=== PATIENT | female | born 1990 | race Caucasian/White ===

== ENCOUNTER 2016-10-07 19:23 | Emergency (ER) | payer MEDICARE, MEDICAID ==
[2016-10-07 20:31] VITALS: BP 107/64
--- NOTE | 2016-10-07 20:47 | UC ---
Skin Complaint HPI - HPI Summary HPI Summary: patient was treated with triamcinolone cream for what was thought to be contact dermatitis. the rash is spreading. it is small fluid filled vesicals on bilateral hands, somewhat itchy - History of Current Complaint Chief Complaint: UCRash Time Seen by Provider: 10/07/16 20:09 Stated Complaint: skin complaint Hx Obtained From: Patient Hx Last Menstrual Period: on depo - doesn't get ?: No Onset/Duration: Sudden Onset, Lasting Days Skin Exposure Onset/Duration: Days Ago Timing: Constant Onset Severity: Mild Current Severity: Moderate Location: Hand (Right), Hand (Left) Character: Swelling, Pruritus, Raised Aggravating: Nothing - Allergy/Home Medications Allergies/Adverse Reactions: Allergies Allergy/AdvReac Type Severity Reaction Status Date / Time No Known Allergies Allergy Verified 10/07/16 20:11 Home Medications: Home Medications Calcium Carbonate-Vitamin D [Calcium 600 + D 600-400 mg-Unit] 1 tab PO BEDTIME 10/07/16 [History Confirmed 10/07/16] Clindamycin Phosphate-Benzoyl [Clindamycin/Benzoyl Perox 1.2-5 %] 1 gel EX BID 10/07/16 [History Confirmed 10/07/16] Fluticasone NASAL SPRAY 50MCG* [Flonase NASAL SPRAY 50MCG*] 2 spray BOTH NARES BEDTIME 10/07/16 [History Confirmed 10/07/16] Loratadine [Claritin 10 MG CAP] 10 mg PO BEDTIME 10/07/16 [History Confirmed ] Multivitamins/Minerals TAB* [Thera M Plus TAB*] 1 tab PO DAILY 10/07/16 [ History Confirmed 10/07/16] Triamcinolone 0.1% OINT(NF) [Kenalog 0.1% OINT(NF)] 1 applic TOPICAL BID [History Confirmed 10/07/16] Review of Systems Constitutional: Negative Skin: Rash - on hands Eyes: Negative ENT: Negative Respiratory: Negative Cardiovascular: Negative Gastrointestinal: Negative Genitourinary: Negative Motor: Negative Neurovascular: Negative Musculoskeletal: Negative Neurological: Negative Psychological: Negative All Other Systems Reviewed And Are Negative: Yes PMH/Surg Hx/FS Hx/Imm Hx Previously Healthy: Yes - Surgical History Surgical History: Yes Surgery Procedure, Year, and Place: Hygroma removal on neck in 1991 - Family History Known Family History: Negative: Cardiac Disease, Hypertension - Social History Alcohol Use: None Substance Use Type: None Smoking Status (MU): Never Smoked Tobacco Physical Exam Triage Information Reviewed: Yes Appearance: Well-Appearing, Well-Nourished, Pain Distress Vital Signs: Initial Vital Signs Temp 98.3 F 10/07/16 20:18 Pulse 66 10/07/16 20:18 Resp 16 10/07/16 20:18 BP 107/64 10/07/16 20:18 Pulse Ox 99 10/07/16 20:18 Vital Signs Reviewed: Yes Eye Exam: Normal ENT Exam: Normal ENT: Positive: Normal ENT inspection, Hearing grossly normal, Pharynx normal Dental Exam: Normal Neck exam: Normal Neck: Positive: Supple, Nontender, No Lymphadenopathy Respiratory Exam: Normal Respiratory: Positive: Chest non-tender, Lungs clear, Normal breath sounds Cardiovascular Exam: Normal Cardiovascular: Positive: RRR, No Murmur, Pulses Normal Abdominal Exam: Normal Abdomen Description: Positive: Nontender, No Organomegaly, Soft Bowel Sounds: Positive: Present Musculoskeletal Exam: Normal Musculoskeletal: Positive: Strength Intact, ROM Intact, No Edema Neurological Exam: Normal Neurological: Positive: Alert, Muscle Tone Normal Psychological Exam: Normal Skin: Positive: rashes - slightly eyrthemic base with fluid filled pustules, some scabbing noted due to itching. on bilateral hands Course/Dx - Course Course Of Treatment: hx obtained, exam performed, meds reviewed, treated for dyshudrotic eczema - Differential Diagnoses - Skin Complaint Differential Diagnoses: Abscess, Cellulitis, Contact Dermatitis, Eczema, Urticaria - Diagnoses Provider Diagnoses: dyshidrotic eczema Discharge - Discharge Plan Condition: Stable Disposition: HOME Prescriptions: Clobetasol 0.05% OINT* 1 applic TOPICAL BID #1 tube Patient Education Materials: Dyshidrotic Eczema (ED) Referrals: Monse Nazario PA [Primary Care Provider] - Additional Instructions: Use the triamcinolone until the new cream arrives. then start the new cream twice a day for 2 weeks, then use on saturday and saturday until rash is gone. keep hands clean and dry. this rash is common on hands and feet. If it appears on feet start the cream there as well.
== END 2016-10-07 21:05 | disposition home or self-care (01) ==
LOC: UCCORT 19:23
DX: L30.1 Dyshidrosis [pompholyx] (principal)
CPT/HCPCS: 99212; G0463

== ENCOUNTER 2017-01-22 08:18 | Emergency (ER) | payer MEDICARE, MEDICAID ==
[2017-01-22 08:28] VITALS: BP 114/69
--- NOTE | 2017-01-22 08:50 | UC ---
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 Hx Last Menstrual Period: unknown Onset/Duration: Sudden Onset, Lasting Days - 2, Still Present Severity Initially: Moderate Severity Currently: Moderate Aggravating Factor(s): Ambulation Alleviating Factor(s): Rest, Elevation Able to Bear Weight: Yes - Allergies/Home Medications Allergies/Adverse Reactions: Allergies Allergy/AdvReac Type Severity Reaction Status Date / Time No Known Allergies Allergy Verified 01/22/17 08:22 PMH/Surg Hx/FS Hx/Imm Hx Previously Healthy: Yes - Surgical History Surgical History: Yes Surgery Procedure, Year, and Place: Hygroma removal on neck in 1991 - Family History Known Family History: Negative: Cardiac Disease, Hypertension - Social History Alcohol Use: None Substance Use Type: None Smoking Status (MU): Never Smoked Tobacco Review of Systems Constitutional: Negative Skin: Negative Eyes: Negative ENT: Negative Respiratory: Negative Cardiovascular: Negative All Other Systems Reviewed And Are Negative: Yes Physical Exam Triage Information Reviewed: Yes Appearance: Well-Appearing, No Pain Distress, Well-Nourished Vital Signs: Initial Vital Signs Temp 98.5 F 01/22/17 08:24 Pulse 98 01/22/17 08:24 Resp 16 01/22/17 08:24 BP 114/69 01/22/17 08:24 Pulse Ox 99 01/22/17 08:24 Vital Signs Reviewed: Yes Eyes: Positive: Conjunctiva Clear ENT Exam: Normal Neck exam: Normal Neck: Positive: Supple Respiratory: Positive: Chest non-tender, Lungs clear, Normal breath sounds Cardiovascular: Positive: RRR, No Murmur, Pulses Normal Musculoskeletal: Positive: Other: - left ankle : no swellling, no erythema, no ecchymosis, + tenderness medial ankle good ROM on flexion and extension Lower Extremity Course/Dx - Differential Dx/Diagnosis Provider Diagnoses: left ankle ibeth Discharge - Discharge Plan Condition: Stable Disposition: HOME Patient Education Materials: Ankle Sprain (ED) Referrals: Monse Nazario PA [Primary Care Provider] - 7 Days
--- NOTE | 2017-01-22 08:53 | RAD ---
Indication: LEFT ankle pain following twisting injury 2 days ago. Comparison: September 07, 2014 Technique: AP, mortise, and lateral views LEFT ankle. REPORT AND IMPRESSION: No cortical disruption or suspicious trabecular irregularity to suggest fracture. Normal articular alignment. No suggestion of talocrural joint effusion. Mild soft tissue swelling over the lateral malleolus.
== END 2017-01-22 09:08 | disposition home or self-care (01) ==
LOC: UCCORT 08:18
DX: S93.402A Sprain of unspecified ligament of left ankle, initial encounter (principal); X50.1XXA Overexertion from prolonged static or awkward postures, initial encounter; Y93.9 Activity, unspecified; Y92.9 Unspecified place or not applicable
CPT/HCPCS: 99212; G0463

== ENCOUNTER 2017-06-25 16:09 | Emergency (ER) | payer MEDICARE, MEDICAID ==
--- NOTE | 2017-06-25 17:02 | UC ---
Respiratory Complaint HPI - HPI Summary HPI Summary: Pt c/o nasal congestion, cough, decreased appetite and fatigue X 1 week. - History of Current Complaint Chief Complaint: UCGeneralIllness Stated Complaint: BODY ACHES,NO APPETITE,ELEVATED HR Time Seen by Provider: 06/25/17 16:37 Hx Obtained From: Patient Hx Last Menstrual Period: n/a ?: No Onset/Duration: Sudden Onset, Lasting Weeks - 1, Still Present Severity Initially: Mild Severity Currently: Mild Aggravating Factors: Deep Breaths, Recumbent Position Associated Signs And Symptoms: Positive: URI, Nasal Congestion - Risk Factors Pulmonary Embolism Risk Factors: Negative Cardiac Risk Factors: Negative Pseudomonas Risk Factors: Negative Tuberculosis Risk Factors: Communal Living - Allergies/Home Medications Allergies/Adverse Reactions: Allergies Allergy/AdvReac Type Severity Reaction Status Date / Time No Known Allergies Allergy Verified 06/25/17 16:35 Home Medications: Home Medications Fluticasone NASAL * [Flonase *] 2 spray BOTH NARES DAILY 06/25/17 [History Confirmed 06/25/17] PMH/Surg Hx/FS Hx/Imm Hx Previously Healthy: Yes - Surgical History Surgical History: Yes Surgery Procedure, Year, and Place: Hygroma removal on neck in 1991 - Family History Known Family History: Negative: Cardiac Disease, Hypertension - Social History Occupation: Disabled Lives: Alf Alcohol Use: None Substance Use Type: None Smoking Status (MU): Never Smoked Tobacco Have You Smoked in the Last Year: No Review of Systems Constitutional: Fatigue Skin: Negative Eyes: Negative ENT: Sinus Congestion Respiratory: Cough Cardiovascular: Negative Gastrointestinal: Negative Genitourinary: Negative Motor: Negative Neurovascular: Negative Musculoskeletal: Negative Neurological: Negative Psychological: Negative Is Patient Immunocompromised?: No All Other Systems Reviewed And Are Negative: Yes Physical Exam Triage Information Reviewed: Yes Appearance: Well-Appearing Vital Signs: Initial Vital Signs Temp 98.8 F 06/25/17 16:31 Pulse 90 06/25/17 16:31 Resp 18 06/25/17 16:31 Pulse Ox 100 06/25/17 16:31 Vital Signs Reviewed: Yes Eye Exam: Normal ENT Exam: Other ENT: Positive: Nasal congestion Dental Exam: Normal Neck exam: Normal Respiratory: Positive: Wheezing Cardiovascular Exam: Normal Musculoskeletal Exam: Other Musculoskeletal: Positive: Other: - left arm weakness, preexisting Neurological Exam: Other - preexisting condition Psychological Exam: Normal Skin Exam: Other - scar on left radames eof neck UC Diagnostic Evaluation - Laboratory O2 Sat by Pulse Oximetry: 100 Respiratory Course/Dx - Differential Dx/Diagnosis Differential Diagnosis/HQI/PQRI: Bronchitis, Influenza, Other - viral syndrome Provider Diagnoses: Bronchitis Discharge - Discharge Plan Condition: Stable Disposition: HOME Prescriptions: Azithromycin TAB* [Zithromax TAB (Z-MIGUE) 250 mg #6 tabs] 2 tab PO .TODAY, THEN 1 DAILY #1 migue Benzonatate CAP* [Tessalon 100 MG CAP*] 100 mg PO Q8H PRN #21 cap PRN Reason: Cough Patient Education Materials: Acute Bronchitis (ED) Referrals: Monse Nazario PA [Primary Care Provider] - If Needed
== END 2017-06-25 17:09 | disposition home or self-care (01) ==
LOC: UCCORT 16:09
DX: J40 Bronchitis, not specified as acute or chronic (principal)
CPT/HCPCS: 87502; 99212; G0463

== ENCOUNTER 2018-03-11 15:23 | Emergency (ER) | payer MEDICARE, MEDICAID ==
[2018-03-11 17:05] VITALS: BP 112/74
--- NOTE | 2018-03-11 18:11 | RAD ---
INDICATION: Left shoulder pain and reduced range of motion after "ran into a [email or web address] dish on 03/09" COMPARISON: None. TECHNIQUE: 4 views of the left shoulder and 2 views of the left clavicle were obtained. FINDINGS: The acromioclavicular joint is widened up to 8 mm. The joint is otherwise anatomically aligned. The visualized bones are otherwise intact and appropriately aligned. The glenohumeral joint is appropriately aligned. IMPRESSION: IN THE CORRECT CLINICAL SETTING RADIOGRAPHIC FINDINGS COULD BE CONSISTENT WITH A TYPE I AC SEPARATION INJURY. If the patient's symptoms persist, follow-up imaging is recommended.
--- NOTE | 2018-03-11 18:11 | RAD ---
INDICATION: Left shoulder pain and reduced range of motion after "ran into a [employer] dish on 03/09" COMPARISON: None. TECHNIQUE: 4 views of the left shoulder and 2 views of the left clavicle were obtained. FINDINGS: The acromioclavicular joint is widened up to 8 mm. The joint is otherwise anatomically aligned. The visualized bones are otherwise intact and appropriately aligned. The glenohumeral joint is appropriately aligned. IMPRESSION: IN THE CORRECT CLINICAL SETTING RADIOGRAPHIC FINDINGS COULD BE CONSISTENT WITH A TYPE I AC SEPARATION INJURY. If the patient's symptoms persist, follow-up imaging is recommended.
--- NOTE | 2018-03-11 18:28 | UC ---
Shoulder Pain HPI - HPI Summary HPI Summary: 27-year-old woman comes in to clinic with a complaint of left shoulder pain. 2 days ago she was playing football and ran into a satellite dish injuring her left shoulder. Pain is worse with movement of the shoulder or pressing on the shoulder. No neurologic deficit. She does have decreased range of motion secondary to pain. Denies any chest pain or shortness of breath. Denies any neck pain head pain or other injuries. - History of Current Complaint Chief Complaint: UCUpperExtremity Stated Complaint: LEFT SHOULDER INJURY Time Seen by Provider: 03/11/18 17:10 Hx Last Menstrual Period: n/a Pain Intensity: 7 - Allergies/Home Medications Allergies/Adverse Reactions: Allergies Allergy/AdvReac Type Severity Reaction Status Date / Time No Known Allergies Allergy Verified 06/25/17 16:35 Home Medications: Home Medications Cholecalciferol TAB* [Vitamin D TAB*] 1,000 units PO DAILY 03/11/18 [History Confirmed 03/11/18] Citalopram TAB* [Celexa TAB*] 20 mg PO DAILY 03/11/18 [History Confirmed ] PMH/Surg Hx/FS Hx/Imm Hx - Surgical History Surgical History: Yes Surgery Procedure, Year, and Place: Hygroma removal on neck in 1991. FEEDING TUBE - Family History Known Family History: Negative: Cardiac Disease, Hypertension - Social History Alcohol Use: None Substance Use Type: None Smoking Status (MU): Never Smoked Tobacco Have You Smoked in the Last Year: No Review of Systems Constitutional: Negative Skin: Negative Eyes: Negative ENT: Negative Respiratory: Negative Cardiovascular: Negative Gastrointestinal: Negative Motor: Decreased ROM - See history present illness Neurovascular: Negative Musculoskeletal: Other: - See history of present illness Neurological: Negative Psychological: Negative Is Patient Immunocompromised?: No All Other Systems Reviewed And Are Negative: Yes Physical Exam Triage Information Reviewed: Yes Appearance: Well-Appearing, Well-Nourished, Pain Distress - MILD Vital Signs: Initial Vital Signs Temp 98.3 F 03/11/18 16:55 Pulse 72 03/11/18 16:55 Resp 16 03/11/18 16:55 BP 112/74 03/11/18 16:55 Pulse Ox 100 03/11/18 16:55 Vital Signs Reviewed: Yes Eye Exam: Normal Neck exam: Normal Neck: Positive: Supple, Nontender Respiratory Exam: Normal Respiratory: Positive: Lungs clear, Normal breath sounds, No respiratory distress Cardiovascular: Positive: RRR Musculoskeletal: Positive: Other: - Patient has full range of motion and strength in the B/L fingers and wrists hands and elbows. She is tender to palpation of the distal clavicle and over the left scapula. Shoulder extension is 110 equally B/L. abduction is 110 bilaterally. Internal rotation is L2 ON the right. L5 on the left. Neurological Exam: Normal Neurological: Positive: Alert Psychological Exam: Normal Skin Exam: Normal Shoulder Course/Dx - Course Course Of Treatment: Order Information: SHOULDER LEFT 2+ VWS. Accession Number : [id number]. CPT: 29289. INDICATION: Left shoulder pain and reduced range of motion after "ran into a [employer] dish on 03/09". COMPARISON: None. TECHNIQUE: 4 views of the left shoulder and 2 views of the left clavicle were obtained. FINDINGS: The acromioclavicular joint is widened up to 8 mm. The joint is otherwise. anatomically aligned. The visualized bones are otherwise intact and appropriately aligned. The glenohumeral joint is appropriately aligned. IMPRESSION: IN THE CORRECT CLINICAL SETTING RADIOGRAPHIC FINDINGS COULD BE CONSISTENT. WITH A TYPE I AC SEPARATION INJURY. If the patient's symptoms persist, follow-up imaging is recommended. . <Electronically signed by Kenny Gaines MD in [place]> 03/11/18 [id number]. Order Information: SCAPULA LEFT. Accession Number: [id number]. CPT: 57209. INDICATION: Left shoulder pain and reduced range of motion after "ran into a [employer] dish on 03/09". COMPARISON: None. TECHNIQUE: 4 views of the left shoulder and 2 views of the left clavicle were obtained. FINDINGS: The acromioclavicular joint is widened up to 8 mm. The joint is otherwise. anatomically aligned. The visualized bones are otherwise intact and appropriately aligned. The glenohumeral joint is appropriately aligned. IMPRESSION: IN THE CORRECT CLINICAL SETTING RADIOGRAPHIC FINDINGS COULD BE CONSISTENT. WITH A TYPE I AC SEPARATION INJURY. If the patient's symptoms persist, follow-up imaging is recommended. . <Electronically signed by Kenny Gaines MD in [facility]> 03/11/18 [id number]. Discussed the x-ray results with the patient and her caregiver. The plan is to put on a sling and encouraged range of motion exercises multiple times a day. Ibuprofen and ice. Follow-up with orthopedics. Recheck sooner if worse. - Differential Dx/Diagnosis Provider Diagnoses: LEFT AC JOINT SEPARATION. LEFT SHOULDER PAIN. LEFT SCAPULA CONTUSION Discharge - Sign-Out/Discharge Documenting (check all that apply): Patient Departure All imaging exams completed and their final reports reviewed: Yes - Discharge Plan Condition: Stable Disposition: HOME Patient Education Materials: Acromioclavicular Separation (ED), Shoulder Pain ( ED), Contusion in Adults (ED), How to Use a Sling (ED), Shoulder Separation Exercises (GEN) Referrals: Monse Nazario PA [Primary Care Provider] - Terri Tinsley MD [Medical Doctor] - [facility] [Outside] Additional Instructions: FOLLOW UP WITH ORTHOPEDICS. GET RECHECKED FOR ANY WORSENING OF YOUR CONDITION OR QUESTIONS OR CONCERNS. - Billing Disposition and Condition Condition: STABLE Disposition: Home
== END 2018-03-11 19:01 | disposition home or self-care (01) ==
LOC: UCCORT 15:23
DX: S43.102A Unspecified dislocation of left acromioclavicular joint, initial encounter (principal); S40.012A Contusion of left shoulder, initial encounter; X58.XXXA Exposure to other specified factors, initial encounter; Y93.61 Activity, american tackle football; Y92.9 Unspecified place or not applicable
CPT/HCPCS: 99212; G0463

== ENCOUNTER 2019-06-05 09:10 | Emergency (ER) | payer MEDICARE, MEDICAID ==
[2019-06-05 09:55] VITALS: BP 115/70
--- NOTE | 2019-06-05 10:15 | UC ---
Hand/Wrist HPI - HPI Summary HPI Summary: 29 yo female c/o L 5th finger swelling and pain, since yesterday s/p volleyball jammed finger. No prox pain, but hurts when moves finger. Pt is L handed. No known prior injury. - History Of Current Complaint Chief Complaint: UCUpperExtremity Stated Complaint: LEFT HAND PINKY FINGER COMPLAINT Time Seen by Provider: 06/05/19 10:14 Hx Obtained From: Patient Hx Last Menstrual Period: unknown, pt receives depo injections Pain Intensity: 7 - Allergies/Home Medications Allergies/Adverse Reactions: Allergies Allergy/AdvReac Type Severity Reaction Status Date / Time No Known Allergies Allergy Verified 06/05/19 09:50 PMH/Surg Hx/FS Hx/Imm Hx Previously Healthy: Yes - Surgical History Surgical History: Yes Surgery Procedure, Year, and Place: Hygroma removal on neck in 1991. feeding tube - Family History Known Family History: Negative: Cardiac Disease, Hypertension - Social History Alcohol Use: None Substance Use Type: None Smoking Status (MU): Former Smoker Have You Smoked in the Last Year: No When Did the Patient Quit Smoking/Using Tobacco: Apr 2019 Review of Systems All Other Systems Reviewed And Are Negative: Yes Constitutional: Positive: Negative Skin: Positive: Other - see hpi Eyes: Positive: Negative ENT: Positive: Negative Respiratory: Positive: Negative Cardiovascular: Positive: Negative Gastrointestinal: Positive: Negative Genitourinary: Positive: Negative Motor: Positive: Other - see hpi Neurovascular: Positive: Negative Musculoskeletal: Positive: Arthralgia Neurological: Positive: Negative Psychological: Positive: Negative Is Patient Immunocompromised?: No Physical Exam Triage Information Reviewed: Yes Appearance: Well-Appearing, Well-Nourished Vital Signs: Initial Vital Signs Temp 97.5 F 06/05/19 09:51 Pulse 94 06/05/19 09:51 Resp 16 06/05/19 09:51 BP 115/70 06/05/19 09:51 Pulse Ox 100 06/05/19 09:51 Vital Signs Reviewed: Yes Eye Exam: Normal ENT Exam: Normal Neck exam: Normal Respiratory Exam: Normal Cardiovascular Exam: Normal Abdominal Exam: Normal Musculoskeletal Exam: Other - R 5th finger + swelling and redness. + tender pid. Able to bend but painful. Neurological Exam: Normal - nonfocal. + distal sens LT present Psychological Exam: Normal Skin Exam: Normal - see finger exam o/w nad Hand/Wrist Course/Dx - Course Course Of Treatment: Xray 5th finger L no fx . 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 Reviewed need for recheck if pain not better (ex consideration of occult fx). See avs instructions. Questions as posed answered to the best of my ability. - Differential Dx/Diagnosis Provider Diagnosis: Sprain of finger, left Discharge ED - Sign-Out/Discharge Documenting (check all that apply): Patient Departure All imaging exams completed and their final reports reviewed: Yes - Discharge Plan Condition: Stable Disposition: HOME Patient Education Materials: Finger Sprain (ED) Referrals: Monse Nazario PA [Primary Care Provider] - Additional Instructions: Splint for 7 days, then as needed for pain thereafter. May remove at night if you like but replace in the morning. Ibuprofen per standing order as needed for pain. I suggest you take at least 1- 2 doses today and tomorrow. Please seek medical treatment for any worse or new problems. OR if pain not better by 7 days. - Billing Disposition and Condition Condition: STABLE Disposition: Home
== END 2019-06-05 11:05 | disposition home or self-care (01) ==
LOC: UCCORT 09:10
DX: S63.617A Unspecified sprain of left little finger, initial encounter (principal); Z87.891 Personal history of nicotine dependence; W23.0XXA Caught, crushed, jammed, or pinched between moving objects, initial encounter; Y93.68 Activity, volleyball (beach) (court); Y92.9 Unspecified place or not applicable
CPT/HCPCS: 73140; 99212; G0463